=== PATIENT | male | born 1955 | race Caucasian/White ===

== ENCOUNTER 2019-03-29 01:44 | Emergency (ER) | payer MEDICARE, OTHER ==
[~2019-03-29] VITALS: Ht 175 cm; Wt 90.0 kg
[2019-03-29 02:21] LABS: BILIRUBIN,URINE NEGATIVE (NEGATIVE); CLARITY,URINE SL CLOUDY; COLOR,URINE YELLOW; GLUCOSE, URINE (UA) NEGATIVE (NEGATIVE); KETONES,URINE NEGATIVE (NEGATIVE); LEUKOCYTE ESTERASE ,URINE NEGATIVE (NEGATIVE); NITRITE,URINE NEGATIVE (NEGATIVE); PROTEIN,URINE NEGATIVE (NEGATIVE)
[2019-03-29 02:26] LABS: BASOPHILS % (AUTO) 0 % (0-10); EOSINOPHILS % (AUTO) 1 % (0-10); HEMATOCRIT 37 % (40-54); HEMOGLOBIN 12.2 G/DL (13.3-17.7); LYMPHOCYTES % (AUTO) 8 % (12-44); MEAN CORPUSCULAR HEMOGLOBIN 31 PG (25-34); MEAN CORPUSCULAR HGB CONC 33 G/DL (32-36); MEAN CORPUSCULAR VOLUME 91 FL (80-99); MEAN PLATELET VOLUME 9.8 FL (7.4-10.4); MONOCYTES % (AUTO) 16 % (0-12); NEUTROPHILS % (AUTO) 74 % (42-75); PLATELET COUNT 165 10^3/uL (130-400); WHITE BLOOD COUNT 7.8 10^3/uL (4.3-11.0)
[2019-03-29 02:27] LABS: EOSINOPHILS # (AUTO) 0.1 10^3/uL (0.0-0.3); LYMPHOCYTES # (AUTO) 0.6 X 10^3 (1.0-4.0); MONOCYTES # (AUTO) 1.3 X 10^3 (0.0-1.0); NEUTROPHILS # (AUTO) 5.8 X 10^3 (1.8-7.8)
[2019-03-29 02:28] LABS: BACTERIA,URINE NEGATIVE /HPF
[2019-03-29 02:40] LABS: ALBUMIN 3.8 GM/DL (3.2-4.5); BILIRUBIN,TOTAL 0.9 MG/DL (0.1-1.0); CALCIUM 8.9 MG/DL (8.5-10.1); CREATININE SERUM 1.67 MG/DL (0.60-1.30); POTASSIUM 4.1 MMOL/L (3.6-5.0); TOTAL PROTEIN 6.3 GM/DL (6.4-8.2)
[2019-03-29] MEDS ORDERED: NS IV 1000 ML 1,000 ML IV ONE (02:43)
[2019-03-29] MEDS ORDERED: ACHD5005 PO (05:24)
--- NOTE | 2019-03-29 05:25 | ED General ---
General Chief Complaint: Back Problems Stated Complaint: BACK, LOWER ABD PAIN Nursing Triage Note: Pt ambulates to RM 9 with c/o left sided flank pain that radiates to LLQ abd x 5 days. Pt reports taking ibuprofen for the pain and is unrelieved "b ut the pain woke him up during the night". Pt states he has a Hx of kidney stones. Nursing Sepsis Screen: No Definite Risk Source of Information: Patient Exam Limitations: No Limitations History of Present Illness Date Seen by Provider: Mar 29, 2019 Time Seen by Provider: 02:09 Initial Comments This 64-year-old gentleman presents to the emergency room with 5 days of intermittent left flank and lower back pain and pain in the left lower quadrant of the abdomen. He has history of ureteral stones and states this pain may be similar to prior stones. He denies any hematuria. Patient is now minimal but was 8/10 at its worst. Pain woke him this morning. He has taken ibuprofen without relief. He thought he was constipated and took stool softeners. This resulted in soft stool but that did not improve his pain. Allergies and Home Medications Allergies Coded Allergies: Penicillins (Verified Allergy, Unknown, 03/29/19) Home Medications Hydrocodone Bit/Acetaminophen 1 Tab Tab, 1-2 EACH PO Q6H PRN for PAIN-MODERATE Prescribed by: JUSTIN PATEL on 03/29/19 0524 Patient Home Medication List Home Medication List Reviewed: Yes Review of Systems Review of Systems Constitutional: no symptoms reported EENTM: no symptoms reported Respiratory: no symptoms reported Cardiovascular: no symptoms reported Gastrointestinal: see HPI Genitourinary: see HPI Musculoskeletal: no symptoms reported Skin: no symptoms reported Psychiatric/Neurological: No Symptoms Reported Hematologic/Lymphatic: No Symptoms Reported Past Snzigcx-[id number]-Tbltzh Hx Past Med/Social Hx: Reviewed and Corrections made Patient Social History Recent Foreign Travel: No Contact w/Someone Who Travel: No Recent Infectious Disease Expo: No Recent Hopitalizations: No Physical Abuse: No Sexual Abuse: No Mistreated: No Fear: No Seasonal Allergies Seasonal Allergies: No Past Medical History Surgeries: Yes (kidney stones removed) Eye Surgery Respiratory: No Cardiac: No Neurological: No Genitourinary: Yes Prostate Problems Gastrointestinal: No Musculoskeletal: No Endocrine: No HEENT: No Cancer: No Psychosocial: No Blood Disorders: No Physical Exam Vital Signs Vital Signs - First Documented 03/29/19 01:54 Temp 36.7 Pulse 73 Resp 18 B/P (MAP) 158/78 (104) Pulse Ox 98 O2 Delivery Room Air Capillary Refill : Less Than 3 Seconds Height, Weight, BMI Height: '" Weight: lbs. oz. kg; 29.00 BMI Method: General Appearance: No Apparent Distress, WD/WN HEENT: PERRL/EOMI, Normal ENT Inspection Neck: Normal Inspection Respiratory: Lungs Clear, Normal Breath Sounds, No Respiratory Distress Cardiovascular: Regular Rate, Rhythm, No Edema, No Murmur Gastrointestinal: Normal Bowel Sounds, Soft, Tenderness (minimal left lower quadrant tenderness) Back: Normal Inspection, No Vertebral Tenderness Extremity: Normal Inspection Neurologic/Psychiatric: Alert, Oriented x3, No Motor/Sensory Deficits, Normal Mood/Affect, filling and packing supervisor II-XII Norm as Tested Skin: Normal Color, Warm/Dry Progress/Results/Core Measures Suspected Sepsis Recent Fever Within 48 Hours: No Infection Criteria Present: None New/Unexplained Altered Menta: No Sepsis Screen: No Definite Risk SIRS Temperature: Pulse: 73 Respiratory Rate: 18 Laboratory Tests 03/29/19 02:06: White Blood Count 7.8 Blood Pressure 158 /78 Mean: 104 Laboratory Tests 03/29/19 02:06: Creatinine 1.67H, Platelet Count 165, Total Bilirubin 0.9 Results/Orders Lab Results Laboratory Tests Test 03/29/19 02:06 Range/Units White Blood Count 7.8 4.3-11.0 10^3/uL Red Blood Count 4.00 L 4.35-5.85 10^6/uL Hemoglobin 12.2 L 13.3-17.7 G/DL Hematocrit 37 L 40-54 % Mean Corpuscular Volume 91 80-99 FL Mean Corpuscular Hemoglobin 31 25-34 PG Mean Corpuscular Hemoglobin Concent 33 32-36 G/DL Red Cell Distribution Width 13.0 10.0-14.5 % Platelet Count 165 130-400 10^3/uL Mean Platelet Volume 9.8 7.4-10.4 FL Neutrophils (%) (Auto) 74 42-75 % Lymphocytes (%) (Auto) 8 L 12-44 % Monocytes (%) (Auto) 16 H 0-12 % Eosinophils (%) (Auto) 1 0-10 % Basophils (%) (Auto) 0 0-10 % Neutrophils # (Auto) 5.8 1.8-7.8 X 10^3 Lymphocytes # (Auto) 0.6 L 1.0-4.0 X 10^3 Monocytes # (Auto) 1.3 H 0.0-1.0 X 10^3 Eosinophils # (Auto) 0.1 0.0-0.3 10^3/uL Basophils # (Auto) 0.0 0.0-0.1 10^3/uL Urine Color YELLOW Urine Clarity SL CLOUDY Urine pH 6.0 5-9 Urine Specific [place] 1.020 1.016-1.022 Urine Protein NEGATIVE NEGATIVE Urine Glucose (UA) NEGATIVE NEGATIVE Urine Ketones NEGATIVE NEGATIVE Urine Nitrite NEGATIVE NEGATIVE Urine Bilirubin NEGATIVE NEGATIVE Urine Urobilinogen 1.0 < = 1.0 MG/DL Urine Leukocyte Esterase NEGATIVE NEGATIVE Urine RBC (Auto) NEGATIVE NEGATIVE Urine RBC NONE /HPF Urine WBC NONE /HPF Urine Squamous Epithelial Cells 2-5 /HPF Urine Crystals NONE /LPF Urine Bacteria NEGATIVE /HPF Urine Casts NONE /LPF Urine Mucus SMALL H /LPF Urine Culture Indicated NO Sodium Level 139 135-145 MMOL/L Potassium Level 4.1 3.6-5.0 MMOL/L Chloride Level 110 H 98-107 MMOL/L Carbon Dioxide Level 19 L 21-32 MMOL/L Anion Gap 10 5-14 MMOL/L Blood Urea Nitrogen 21 H 7-18 MG/DL Creatinine 1.67 H 0.60-1.30 MG/DL Estimat Glomerular Filtration Rate 41 BUN/Creatinine Ratio 13 Glucose Level 116 H 70-105 MG/DL Calcium Level 8.9 8.5-10.1 MG/DL Corrected Calcium 9.1 8.5-10.1 MG/DL Total Bilirubin 0.9 0.1-1.0 MG/DL Aspartate Amino Transf (AST/SGOT) 18 5-34 U/L Alanine Aminotransferase (ALT/SGPT) 20 0-55 U/L Alkaline Phosphatase 82 40-136 U/L Total Protein 6.3 L 6.4-8.2 GM/DL Albumin 3.8 3.2-4.5 GM/DL My Orders Orders - JUSTIN MONTEJO MD Ed Iv/Invasive Line Start (03/29/19 02:09) Cbc With Automated Diff (03/29/19 02:09) Comprehensive Metabolic Panel (03/29/19 02:09) Ua Culture If Indicated (03/29/19 02:09) Ns Iv 1000 Ml (Sodium Chloride 0.9%) (03/29/19 02:43) Ct Abd/Pelvis Wo(Kidney Stone) (03/29/19 03:21) Hydrocodone/Apap 5/325 Tablet (Lortab 5 (03/29/19 05:30) Medications Given in ED Current Medications Medications Dose Ordered Sig/Sayda Route Start Time Stop Time Status Last Admin Dose Admin Acetaminophen/ Hydrocodone Bitart 1 tab ONCE ONCE PO 03/29/19 05:30 03/29/19 05:31 DC 03/29/19 05:27 1 TAB Sodium Chloride 1,000 ml @ 0 mls/hr Q0M ONCE IV 03/29/19 02:43 03/29/19 02:44 DC 03/29/19 03:17 0 MLS/HR Vital Signs/I&O 03/29/19 03/29/19 01:54 05:33 Temp 36.7 36.7 Pulse 73 73 Resp 18 18 B/P (MAP) 158/78 (104) 145/84 (104) Pulse Ox 98 98 O2 Delivery Room Air Capillary Refill : Less Than 3 Seconds Blood Pressure Mean: 104 POS Progress Note : Progress Note Patient's pain had subsided significantly by the time of my evaluation. I discussed options for workup with the patient including CT of the abdomen and pelvis for evaluation of ureteral stone. After discussion of risks and benefits patient wished to proceed with CT scan. CT noted a distal right ureteral stone and a proximal left ureteral stone with multiple stones within the kidneys. There was bilateral hydronephrosis. Patient was strongly urged to follow-up with a urologist promptly tomorrow. A copy of this note will be sent to Dr. Hutchison. I communicated the presence of renal insufficiency necessitated expedited follow-up. Patient expressed understanding. He received a single dose of hydrocodone to manage his pain. A liter of IV fluid was also infused. Diagnostic Imaging Diagonstic Imaging: CT Plain Films/CT/US/NM/MRI: abdomen, pelvis Comments CT abdomen and pelvis viewed by me and [facility] report reviewed. There appears to be a left proximal obstructing ureteral stone and a right distal possibly obstructing ureteral stone and associated bilateral hydronephrosis. Departure Impression Primary Impression: Bilateral ureteral calculi Additional Impressions: Renal insufficiency Bilateral hydronephrosis Disposition: 01 HOME, SELF-CARE Condition: Improved Departure-Patient Inst. Decision time for Depature: 05:15 Referrals: NO,LOCAL PHYSICIAN (PCP) Primary Care Physician ROBERT HUTCHISON MD Patient Instructions: Kidney Stones in Adults, Kidney Failure (DC) Add. Discharge Instructions: Drink plenty of clear liquids. Avoid the use of NSAID medications such as ibuprofen, aspirin, naproxen, Aleve, Advil, etc. Use of these medications may worsen your kidney function. Follow-up with your primary care provider later this week to monitor your kidney function. Follow-up with a urologist such as Dr. Hutchison as soon as possible. Please call Saturday morning for an appointment time. Return to the emergency room if you have worsening symptoms or develop new symptoms such as fever. All discharge instructions reviewed with patient and/or family. Voiced understanding. Scripts Hydrocodone Bit/Acetaminophen (Hydrocodone/Acetaminophen 5/325mg Tablet) 1 Tab Tab 1-2 EACH PO Q6H PRN for PAIN-MODERATE MDD 10, #20 TAB 0 Refills Prov: JUSTIN MONTEJO MD 03/29/19 Copy Copies To 1: ROBERT HUTCHISON MD, JOSHUA T MD Mar 29, 2019 05:25 POS
[2019-03-29] MEDS ORDERED: HYDROcodone/APAP 5 MG/325 MG (LORTAB) TAB PO ONE (05:30)
[2019-03-29 05:33] VITALS: BP 145/84
--- NOTE | 2019-03-29 06:43 | Diagnostic Imaging Report ---
PROCEDURE: CT urinary tract, rule out kidney stone. TECHNIQUE: Multiple contiguous axial images were obtained through the abdomen and pelvis without the use of intravenous contrast. Auto Exposure Controls were utilized during the CT exam to meet ALARA standards for radiation dose reduction. INDICATION: Right-sided abdominal pain. No prior studies are available for comparison. FINDINGS: The lung bases are clear. Liver contains a tiny low density in the dome of the right lobe, too small to characterize. Gallbladder is unremarkable. No biliary ductal dilatation is seen. The pancreas and spleen are unremarkable. There is no adrenal mass. There are multiple nonobstructing calculi within bilateral kidneys. Largest calculus on the right measures approximately 5 mm. There is a stone in the distal right ureter approximately 4 to 5 mm in size just above the UVJ. There is some mild hydroureteronephrosis. Left kidney is enlarged and demonstrates some perirenal inflammatory stranding. Hydroureteronephrosis is present with 4 to 5 mm calculus in the proximal left ureter. No other ureteral calculi are seen. No bladder calculi are detected. Aorta is non-aneurysmal. Small and large bowel loops are normal caliber. There is no ascites. Prostate is enlarged. Bony structures appear nonacute. IMPRESSION: 1. Bilateral nonobstructing nephrolithiasis. In addition, there are bilateral ureteral calculi producing moderate hydroureteronephrosis. 2. Prostatomegaly. Dictated by: Dictated on workstation # [id number]
== END 2019-03-29 05:33 | disposition home or self-care (01) ==
LOC: ER 01:47
DX: N13.2 Hydronephrosis with renal and ureteral calculous obstruction (principal); Z88.0 Allergy status to penicillin
CPT/HCPCS: 36415; 74176; 80053; 81000; 85025

== ENCOUNTER → 2019-03-30 | Outpatient (CLI) | payer MEDICARE, OTHER ==
[~2019-03-30] MED LIST: ACHD5005 PO; LEVO500T2 PO; TERA5CAP3 PO
--- NOTE | 2019-03-30 17:04 | Diagnostic Imaging Report ---
INDICATION: Left flank pain. Kidney stones. FINDINGS: Stone at the upper aspect of the left kidney is unchanged from prior CT examination. Stone within the right renal pelvis also appears unchanged in position. The smaller intrarenal stones are not evident. The patient's prior distal left ureteral stone is unchanged in position and projects over the left L5 transverse process. The bowel gas pattern is nonobstructed. IMPRESSION: 1. The largest intrarenal calculi within the kidneys are unchanged as is the patient's left-sided mid ureteral stone which measures approximately 5 mm and is unchanged in position projecting over the left L5 transverse process. Dictated by: Dictated on workstation # [id number]
== END ==
LOC: RAD 13:39
PROVIDERS: ATTEND Urology
DX: N20.2 Calculus of kidney with calculus of ureter (principal)
CPT/HCPCS: 74018

== ENCOUNTER 2019-03-31 07:37 | Day surgery (SDC) | payer MEDICARE, OTHER ==
[~2019-03-31] VITALS: Ht 175.3 cm; Wt 88.5 kg
[2019-03-31] VITALS (11 sets, daily range): BP systolic 125–162; BP diastolic 78–93
[~2019-03-31 07:37] MED LIST changes: -LEVO500T2 PO; -TERA5CAP3 PO
--- NOTE | 2019-03-31 08:35 | Diagnostic Imaging Report ---
Reason for examination: Kidney stones, ESWL. Supine view of the abdomen was obtained and compared to yesterday. A 5 mm left ureteral stone has progressed inferiorly which now overlies the left S2 sacral foramen. A 4 mm and 6 mm calcification overlie the right renal shadow and a 6 mm calcification overlies the left renal shadow. No bowel obstruction or free air. IMPRESSION: 1. The 5 mm left ureteral stone has progressed inferiorly from the left L5 transverse process to the left S2 sacral foramen. 2. Bilateral renal calcifications consistent with nonobstructing stones. Dictated by: Dictated on workstation # [id number]
--- NOTE | 2019-03-31 08:41 | Progress Note-Pre Operative ---
Pre-Operative Progress Note H&P Reviewed The H&P was reviewed, patient examined and no changes noted. Date Seen by Provider: Mar 31, 2019 Time Seen by Provider: 08:41 Date H&P Reviewed: Mar 31, 2019 Time H&P Reviewed: 08:41 Pre-Operative Diagnosis: BILATERAL URETERAL AND RENAL STONES ORBERT HUTCHISON MD Mar 31, 2019 08:41 POS
[2019-03-31] MEDS ORDERED: TERA5CAP3 PO (08:44)
[2019-03-31] MEDS: LACTATED RINGERS 1,000 ML IV PRN ×2 (08:46→13:06)
[2019-03-31] MEDS ORDERED: CATHETER FLUSH 10 ML SYR IV PRN (10:00)
[2019-03-31] MEDS ORDERED: cefTRIAXone 1,000 MG/SWFI 10 ML IV PUSH IV ONE ×2 (10:00)
[2019-03-31] MEDS ORDERED: fentaNYL INJECTION 100 MCG/2 ML AMP ONE ×2 (11:03→11:24)
[2019-03-31] MEDS ORDERED: fentaNYL INJECTION 100 MCG/2 ML AMP IVP ONE (11:15)
[2019-03-31] MEDS ORDERED: LIDOCAINE PF 2% 5 ML (XYLOCAINE) VIAL ONE (11:24)
[2019-03-31] MEDS ORDERED: MIDAZOLAM 2 MG/2 ML (VERSED) VIAL ONE (11:24)
[2019-03-31] MEDS ORDERED: SEVOFLURANE (ULTANE) 15 ML INHAL SOLN ONE ×5 (11:24→13:49)
[2019-03-31] MEDS ORDERED: ROCURONIUM 10 MG/ML 5 ML SYRINGE IV ONE (11:24)
[2019-03-31] MEDS ORDERED: ONDANSETRON 4 MG/2 ML (SDV) Z0FRAN ONE (11:24)
[2019-03-31] MEDS ORDERED: proPOfol 200 MG/20 ML (DIPRIVAN) VIAL IV ONE ×2 (11:24→13:26)
--- NOTE | 2019-03-31 12:54 | Progress Note-Post Operative ---
Post-Operative Progess Note Surgeon (s)/Apartment Manager (s) Surgeon ROBERT HUTCHISON MD Apartment Manager: NONE Pre-Operative Diagnosis BILATERAL URETERAL AND RENAL STONES Post-Operative Diagnosis SAME Procedure & Operative Findings Date of Procedure 03/31/19 Procedure Performed/Findings BILATERAL URETEROSCOPY AND BILATERAL ESWL Anesthesia Type GENERAL Estimated Blood Loss Estimated blood loss (mL): NONE Specimens/Packing Specimens Removed NONE Packing: NONE ROBERT HUTCHISON MD Mar 31, 2019 12:54 POS
--- NOTE | 2019-03-31 12:56 | Discharge Inst-Urology ---
Discharge Inst-Urology Reconcile Patient Problems Problems Reviewed?: Yes Final Diagnosis BILATERAL URETERAL AND RENAL STONES Patient Instructions/Follow Up Plan/Assessment/Instructions Please make appointment to been seen in office in 2 weeks. KUB prior to it. KUB on way home Post ESWL instructions Increase oral fluids for 48 hours and then as needed. Diet and Activity as tolerated. If questions or concerns contact your physician Or seek help at emergency department. ROBERT HUTCHISON MD Mar 31, 2019 12:56 POS
[2019-03-31] MEDS ORDERED: FUROSEMIDE 40 MG/4 ML INJ (LASIX) ONE (13:26)
[2019-03-31] MEDS ORDERED: KETOROLAC 30 MG/ML VIAL ONE (13:26)
[2019-03-31] MEDS ORDERED: ONDANSETRON 4 MG/2 ML (SDV) Z0FRAN IVP PRN (14:15)
[2019-03-31] MEDS ORDERED: morphine INJ 10 MG/ML 1ML (SYR OR VIAL) IVP ONE (14:15)
[2019-03-31] MEDS ORDERED: LEVO500T2 PO (14:26)
--- NOTE | 2019-03-31 15:57 | Diagnostic Imaging Report ---
INDICATION: Postop lithotripsy. TIME OF EXAM: 3:46 p.m. COMPARISON: Correlation is made with prior radiograph from earlier today. FINDINGS: Bowel gas pattern is unremarkable. Previously noted left pelvic calcification overlying the mid left sacrum is unchanged in position. Calcific densities overlie the renal shadows bilaterally. No other ureteral calculi are seen. IMPRESSION: Stable abdominal radiograph since the study earlier today. Dictated by: Dictated on workstation # [id number]
--- NOTE | 2019-03-31 22:04 | OPERATIVE REPORT ---
DATE OF SERVICE: 03/31/2019 PREOPERATIVE DIAGNOSIS: Bilateral distal ureteral stones. POSTOPERATIVE DIAGNOSIS: Bilateral distal ureteral stones. OPERATION PERFORMED: Bilateral ureteroscopies and bilateral ESWL. SURGEON: Sushil Hutchison MD ANESTHESIA: General. COMPLICATIONS: None. DESCRIPTION OF PROCEDURE: Under satisfactory general anesthesia, the patient in lithotomy position on the cystoscopy table. Genitalia were prepped and draped in the usual sterile fashion. Cystoscope was introduced under vision. The anterior urethra was normal. The prostate was nonobstructing. Bladder neck was open. Bladder was inspected and was essentially normal except for sluggish efflux more so on the left side. Using the foroblique lens, I dilated the right ureteral orifice intramural portion as well as the left one to accommodate a 6.9 Pashto semi-rigid urethroscope first into the right ureter very close to the stone, I could visualize it, it was floating and relatively smooth. No spike; however, I could not safely fragment it with the lithoclast or basket it plus I was also concerned that it being floating, it will migrate back to the kidney, so I discontinued further attempt and then performed a left ureteroscopy and same scenario again. So, I elected to quit and perform bilateral ESWL. We moved the patient to the ESWL table in supine. First, we localized the left distal ureteral stone. Delivered shocks at kV of 10. A total of 3000 shocks fragmented the stone very well. Then, we moved just to the right distal ureteral stone and again at kV of 10 delivered 2000 shocks with good results. The patient received 30 mg of Toradol and 40 mg of Lasix at the end of the procedure. He tolerated the procedure and anesthesia well and was sent to recovery room in stable condition. Job ID: [id number] DocumentID: [id number] Dictated Date: 03/31/2019 13:44:34 Clam Shucking Machine Tender Date: 03/31/2019 22:03:55 Dictated By: SUSHIL HUTCHISON MD
== END 2019-03-31 16:05 | disposition home or self-care (01) ==
LOC: SDC 07:37
PROVIDERS: ATTEND Urology
DX: N20.1 Calculus of ureter (principal); Z11.2 Encounter for screening for other bacterial diseases; R31.9 Hematuria, unspecified; N40.0 Benign prostatic hyperplasia without lower urinary tract symptoms; Z79.899 Other long term (current) drug therapy; Z88.0 Allergy status to penicillin
CPT/HCPCS: 74018; 87081

== ENCOUNTER → 2019-04-14 | Outpatient (CLI) | payer MEDICARE, OTHER ==
[~2019-04-14] MED LIST changes: +LEVO500T2 PO; +NITR-65 PO; +TAMS0.4C98 PO; +TERA5CAP3 PO; +TRAM50TA2 PO
--- NOTE | 2019-04-14 16:34 | Diagnostic Imaging Report ---
INDICATION: Post ESWL. COMPARISON: 03/31/2019. FINDINGS: The left renal calculus is unchanged measuring about 5 mm. The stone at the L5 level of the left ureter present on the CT of 03/31/2019 is no longer identified. A calcification measuring 5 mm projects between the left 3rd and 4th lumbar spinous process tips. No other potential right-sided ureteral stone. IMPRESSION: Reduction in stone burden. Intrarenal left calculus measuring 5 mm. Stone along the course of the right ureter is 5 mm. No other suspicious calcifications. Dictated by: Dictated on workstation # [id number]
== END ==
LOC: RAD 14:07
PROVIDERS: ATTEND Urology
DX: N20.2 Calculus of kidney with calculus of ureter (principal); Z98.890 Other specified postprocedural states
CPT/HCPCS: 74018

== ENCOUNTER 2019-04-15 09:25 | Day surgery (SDC) | payer MEDICARE, OTHER ==
[2019-04-15] VITALS (11 sets, daily range): BP systolic 118–137; BP diastolic 67–89
[~2019-04-15] VITALS: Ht 175.3 cm; Wt 88.5 kg
[~2019-04-15 09:25] MED LIST changes: -NITR-65 PO; -TAMS0.4C98 PO; -TRAM50TA2 PO
--- NOTE | 2019-04-15 10:06 | Progress Note-Pre Operative ---
Pre-Operative Progress Note H&P Reviewed The H&P was reviewed, patient examined and no changes noted. Date Seen by Provider: Apr 15, 2019 Time Seen by Provider: 10:05 Date H&P Reviewed: Apr 15, 2019 Time H&P Reviewed: 10:05 Pre-Operative Diagnosis: RT PROXIMAL AND LT RENAL STONES ROBERT HUTCHISON MD Apr 15, 2019 10:06 POS
--- NOTE | 2019-04-15 10:19 | Diagnostic Imaging Report ---
INDICATION: Evaluation prior to extracorporeal shock wave lithotripsy, nephrolithiasis. TECHNIQUE: Single supine view of the abdomen at 9:58 AM. CORRELATION STUDY: 04/14/2019. FINDINGS: A large amount of overlying bowel gas and stool does obscure detail. No evidence for underlying bowel obstruction. An approximately 7 mm calcification projects over the superior pole of the left kidney. A 7 mm opacification projects just below the right L3 transverse process and may reflect a potential ureteric or more central renal stone. These appear relatively stable in their position. Sclerosis of the right SI joint is unchanged. IMPRESSION: Probable calcification in the superior pole of the left kidney with additional calcification more centrally over the right kidney or perhaps in the proximal right ureter. Dictated by: Dictated on workstation # [id number]
[2019-04-15] MEDS ORDERED: LACTATED RINGERS 1,000 ML IV PRN (10:22)
[2019-04-15] MEDS ORDERED: LEVOFLOXACIN 250 MG/50 ML IVPB 50 ML IV ONE (10:45)
[2019-04-15] MEDS ORDERED: proPOfol 200 MG/20 ML (DIPRIVAN) VIAL IV ONE (10:52)
[2019-04-15] MEDS ORDERED: LIDOCAINE PF 2% 5 ML (XYLOCAINE) VIAL ONE (10:52)
[2019-04-15] MEDS ORDERED: SEVOFLURANE (ULTANE) 15 ML INHAL SOLN ONE ×2 (10:52→11:50)
[2019-04-15] MEDS ORDERED: ONDANSETRON 4 MG/2 ML (SDV) Z0FRAN ONE (10:52)
[2019-04-15] MEDS ORDERED: fentaNYL INJECTION 100 MCG/2 ML AMP ONE (10:52)
[2019-04-15] MEDS ORDERED: DEXAMETHASONE 10 MG/ML (DECADRON) 1 ML VIAL ONE (10:52)
[2019-04-15] MEDS ORDERED: MIDAZOLAM 2 MG/2 ML (VERSED) VIAL ONE (10:52)
--- NOTE | 2019-04-15 11:27 | Progress Note-Post Operative ---
Post-Operative Progess Note Surgeon (s)/Welder Fitter Apprentice (s) Surgeon ROBERT HUTCHISON MD Welder Fitter Apprentice: NONE Pre-Operative Diagnosis RT PROXIMAL AND LT RENAL STONES Post-Operative Diagnosis SAME Procedure & Operative Findings Date of Procedure 04/15/19 Procedure Performed/Findings RT ESWL Anesthesia Type GENERAL Estimated Blood Loss Estimated blood loss (mL): NONE Specimens/Packing Specimens Removed NONE Packing: NONE ROBERT HUTCHISON MD Apr 15, 2019 11:27 POS
--- NOTE | 2019-04-15 11:30 | Discharge Inst-Urology ---
Discharge Inst-Urology Reconcile Patient Problems Problems Reviewed?: Yes Patient Instructions/Follow Up Plan/Assessment/Instructions Please make appointment to been seen in office Friday 04/27, KUB prior to it KUB on way home Post ESWL instructions Increase oral fluids for 48 hours and then as needed. Diet and Activity as tolerated. If questions or concerns contact your physician Or seek help at emergency department. ROBERT HUTCHISON MD Apr 15, 2019 11:30 POS
[2019-04-15] MEDS ORDERED: KETOROLAC 30 MG/ML VIAL ONE (11:47)
[2019-04-15] MEDS ORDERED: FUROSEMIDE 40 MG/4 ML INJ (LASIX) ONE (11:47)
[2019-04-15] MEDS ORDERED: HYDROmorphone 2 MG/ML VIAL (DILAUDID) IV ONE (12:15)
[2019-04-15] MEDS ORDERED: ONDANSETRON 4 MG/2 ML (SDV) Z0FRAN IVP PRN (12:15)
[2019-04-15] MEDS ORDERED: NITR-65 PO (13:45)
[2019-04-15] MEDS ORDERED: TMSL.4C PO (13:45)
[2019-04-15] MEDS ORDERED: TRM50T PO (13:45)
--- NOTE | 2019-04-15 15:23 | Diagnostic Imaging Report ---
INDICATION: Nephrolithiasis, post extracorporal shockwave lithotripsy. TECHNIQUE: Single supine view of the abdomen, 1:55 PM. CORRELATION STUDY: 04/15/2019. FINDINGS: Approximately 6 to 7 mm calcification in the superior pole left kidney. Additional small calcification more laterally and inferiorly. Additional calcification interposed between the L3-L4 transverse process, approximately 6 mm in size is present. This appears relatively stable. Small calcification in the right hemipelvis, likely a phlebolith. IMPRESSION: No appreciable change in size, appearance or distribution of the areas of calcification over the renal silhouettes and expected course of the ureters. Dictated by: Dictated on workstation # [id number]
--- NOTE | 2019-04-15 15:54 | Anesthesia-General Post-Op ---
General Patient Condition Mental Status/LOC: Same as Preop Cardiovascular: Satisfactory Nausea/Vomiting: Absent Respiratory: Satisfactory Pain: Controlled Complications: Absent Post Op Complications Complications None Follow Up Care/Instructions Patient Instructions None needed. Anesthesia/Patient Condition Patient Condition Patient is doing well, no complaints, stable vital signs, no apparent adverse anesthesia problems. No complications reported per nursing. D/C home per [facility] [place] Criteria: Yes MARTITA JOHNSON CRNA Apr 15, 2019 15:54 POS
--- NOTE | 2019-04-15 19:07 | OPERATIVE REPORT ---
DATE OF SERVICE: 04/15/2019 PREOPERATIVE DIAGNOSES: 1. Right proximal ureteral stone. 2. Left renal stone. POSTOPERATIVE DIAGNOSES: 1. Right proximal ureteral stone. 2. Left renal stone. OPERATION PERFORMED: Right ESWL. SURGEON: Sushil Hutchison MD ANESTHESIA: General. COMPLICATIONS: None. DESCRIPTION OF PROCEDURE: Under satisfactory general anesthesia, the patient in supine position on the ESWL table, the right proximal ureteral stone was localized. Shocks were delivered at kV of 6, a total of 2500 shocks completely fragmented the stone. The patient received 40 mg of Lasix and 30 mg of Toradol IV at the end of the procedure. He tolerated the procedure and anesthesia well and was sent to recovery room in stable condition. PLAN: Check with him when he comes back for followup and continue to decide if he wants to go ahead and do ESWL of the left renal stone . Job ID: [id number] DocumentID: [id number] Dictated Date: 04/15/2019 11:51:09 Jewel Lathe Operator Date: 04/15/2019 19:06:23 Dictated By: SUSHIL HUTCHISON MD
--- OUTSIDE RECORDS SUMMARY | 2019-05-10 22:47 | XMS REPORT | Continuity of Care Document ---
Author Organization Unknown Address Unknown Phone Unavailable Allergies Active Description Code Type Severity Reaction Onset Reported/Identified Relationship to Patient Clinical Status Yes Penicillins [id number] Drug Aller gy Unknown N/A 03/29/2019 Yes Penicillins [id number] Drug Aller gy Unknown RASH 03/31/2019 Medications There is no data. 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 03/29/2019 JUSTIN MONTEJO MD, Ot N28.9 DISORDER OF KIDNEY AND URETER, UNSPECIFI 03/29/2019 JUSTIN MONTEJO MD, Ot Z88.0 ALLERGY STATUS TO PENICILLIN 04/02/2019 ROBERT HUTCHISON MD Ot N20.2 CALCULUS OF KIDNEY WITH CALCULUS OF URET 04/03/2019 ROBERT HUTCHISON MD, Ot N20.1 CALCULUS OF URETER 04/03/2019 ROBERT HUTCHISON MD Ot N40.0 BENIGN PROSTATIC HYPERPLASIA WITHOUT LOW 04/03/2019 ROBERT HUTCHISON MD Ot R31.9 HEMATURIA, UNSPECIFIED 04/03/2019 ROBERT HUTCHISON MD, Ot Z11.2 ENCOUNTER FOR SCREENING FOR OTHER BACTER 04/03/2019 ROBERT HUTCHISON MD Ot 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 04/03/2019 ROBERT HUTCHISON MD, Ot Z88.0 ALLERGY STATUS TO PENICILLIN 04/04/2019 JUSTIN MONTEJO MD, Ot N13.2 HYDRONEPHROSIS WITH RENAL AND URETERAL C 04/04/2019 JUSTIN MONTEJO MD, Ot N28.9 DISORDER OF KIDNEY AND URETER, UNSPECIFI 04/04/2019 JUSTIN MONTEJO MD, Ot Z88.0 ALLERGY STATUS TO PENICILLIN 04/17/2019 ROBERT HUTCHISON MD, Ot N20.2 CALCULUS OF KIDNEY WITH CALCULUS OF URET 04/17/2019 ROBERT HUTCHISON MD Ot Z98.8 90 OTHER SPECIFIED POSTPROCEDURAL STATES 04/20/2019 ROBERT HUTCHISON MD Ot N20.2 CALCULUS OF KIDNEY WITH CALCULUS OF URET 04/20/2019 ROBERT HUTCHISON MD Ot N40.0 BENIGN PROSTATIC HYPERPLASIA WITHOUT LOW 04/20/2019 ROBERT HUTCHISON MD Ot Z88.0 ALLERGY STATUS TO PENICILLIN 04/28/2019 ROBERT HUTCHISON MD, Ot N20.2 CALCULUS OF KIDNEY WITH CALCULUS OF URET Procedures There is no data. Results Test Result Range Complete urinalysis with reflex to cultu re - 03/29/19 02:06 Urine color determination YELLOW NRG Urine clarity determination SL CLOUDY N RG Urine pH measurement by test strip 6.0 5-9 Specific gravity of urine by test strip 1.020 1.016-1.022 Urine protein assay by test strip, semi-quantitative NEGATIVE NEGATIVE Urine glucose detection by automated test strip NE GATIVE NEGATIVE Erythrocytes detection in urine sediment by light micr oscopy NEGATIVE NEGATIVE Urine ketones detection by automated test strip NE GATIVE NEGATIVE Urine nitrite detection by test strip NEGATIVE NEGATIVE Urine total bilirubin detection by test strip NEGA TIVE NEGATIVE Urine urobilinogen measurement by automated test strip (mass/volume) 1.0 mg/dL < = 1.0 Urine leukocyte esterase detection by dipstick NEG ATIVE NEGATIVE Automated urine sediment erythrocyte cou nt by microscopy (number/high power field) NONE NRG Automated urine sediment leukocyte count by microscopy (number/high power field) NONE NRG Bacteria detection in urine sediment by light microsco py NEGATIVE NRG Squamous epithelial cells detection in u rine sediment by light microscopy 2-5 NRG Crystals detection in urine sediment by light microsco py NONE NRG Casts detection in urine sediment by light microscopy NONE NRG Mucus detection in urine sediment by light microscopy SMALL NRG Complete urinalysis with reflex to culture NO NRG Complete blood count (CBC) with automate d white blood cell (WBC) differential - 03/29/19 02:06 Blood leukocytes automated count (number/volume) 7.8 10*3/uL 4.3-11.0 Blood erythrocytes automated count (number/volume) 4.00 10*6/uL 4.35-5.85 Venous blood hemoglobin measurement (mass/volume) 12.2 g/dL 13.3-17.7 Blood hematocrit (volume fraction) 37 % 40-54 Automated erythrocyte mean corpuscular volume 91 [ foz_us] 80-99 Automated erythrocyte mean corpuscular h emoglobin (mass per erythrocyte) 31 pg 25-34 Automated erythrocyte mean corpuscular h emoglobin concentration measurement (mass/volume) 33 g/dL 32-36 Automated erythrocyte distribution width ratio 13. 0 % 10.0- 14.5 Automated blood platelet count (count/volume) 165 10*3/uL 130-400 Automated blood platelet mean volume measurement 9.8 [foz_us] 7.4-10.4 Automated blood neutrophils/100 leukocytes 74 % 42-75 Automated blood lymphocytes/100 leukocytes 8 % 12-44 Blood monocytes/100 leukocytes 16 % 0-12 Automated blood eosinophils/100 leukocytes 1 % 0-10 Automated blood basophils/100 leukocytes 0 % 0-10 Blood neutrophils automated count (number/volume) 5.8 10*3 1.8-7.8 Blood lymphocytes automated count (number/volume) 0.6 10*3 1.0-4.0 Blood monocytes automated count (number/volume) 1. 3 10*3 0.0-1.0 Automated eosinophil count 0.1 10*3/uL 0 .0-0.3 Automated blood basophil count (count/volume) 0.0 10*3/uL 0.0-0.1 Comprehensive metabolic panel - 03/29/19 02:06 Serum or plasma sodium measurement (moles/volume) 139 mmol/L 135-145 Serum or plasma potassium measurement (moles/volume) 4.1 mmol/L 3.6-5.0 Serum or plasma chloride measurement (moles/volume) 110 mmol/L 98-107 Carbon dioxide 19 mmol/L 21-32 Serum or plasma anion gap determination (moles/volume) 10 mmol/L 5-14 Serum or plasma urea nitrogen measurement (mass/volume ) 21 mg/dL 7-18 Serum or plasma creatinine measurement (mass/volume) 1.67 mg/dL 0.60-1.30 Serum or plasma urea nitrogen/creatinine mass ratio 13 NRG Serum or plasma creatinine measurement w ith calculation of estimated glomerular filtration rate 41 NRG Serum or plasma glucose measurement (mass/volume) 116 mg/dL 70-105 Serum or plasma calcium measurement (mass/volume) 8.9 mg/dL 8.5-10.1 Serum or plasma total bilirubin measurement (mass/volu me) 0.9 mg/dL 0.1-1.0 Serum or plasma alkaline phosphatase zulma surement (enzymatic activity/volume) 82 U/L 40-136 Serum or plasma aspartate aminotransfera se measurement (enzymatic activity/volume) 18 U/L 5-34 Serum or plasma alanine aminotransferase measurement (enzymatic activity/volume) 20 U/L 0-55 Serum or plasma protein measurement (mass/volume) 6.3 g/dL 6.4-8.2 Serum or plasma albumin measurement (mass/volume) 3.8 g/dL 3.2-4.5 CALCIUM CORRECTED 9.1 mg/dL 8.5-10.1 Methicillin resistant Staphylococcus aur eus (MRSA) screening culture - 03/31/19 08:04 Methicillin resistant Staphylococcus aureus (MRSA) scr eening culture NEG NRG Methicillin resistant Staphylococcus aur eus (MRSA) screening culture - 04/15/19 10:30 Methicillin resistant Staphylococcus aureus (MRSA) scr eening culture NEG NRG Encounters ACCT No. Visit Date/Time Discharge Status Pt. Type Provider Facility Loc./Unit Complaint [id number] 04/15/2019 09:25:00 14:20:00 DIS Outpatient ROBERT HUTCHISON MD [facility] RIGHT PROXIMAL URETERAL STONE [id number] 04/14/2019 14:07:00 23:59:59 CLS Outpatient ROBERT HUTCHISON MD [facility] RAD KUB [id number] 03/31/2019 07:37:00 16:05:00 DIS Outpatient ROBERT HUTCHISON MD [facility] BILATERAL URETERAL/HELADIO L STONES [id number] 03/30/2019 13:39:00 23:59:59 CLS Outpatient ROBERT HUTCHISON MD [facility] RAD BILATERAL STONES [id number] 03/29/2019 01:47:00 05:33:00 DIS Emergency JUSTIN MONTEJO MD [facility] ER BACK, LOWER ABD PAIN
== END 2019-04-15 14:20 | disposition home or self-care (01) ==
LOC: SDC 09:25
PROVIDERS: ATTEND Urology
DX: N20.2 Calculus of kidney with calculus of ureter (principal); N40.0 Benign prostatic hyperplasia without lower urinary tract symptoms; Z88.0 Allergy status to penicillin
CPT/HCPCS: 74018; 87081

== ENCOUNTER → 2020-06-22 | Outpatient (CLI) | payer SELFPAY ==
[~2020-06-22] MED LIST changes: +NITR-65 PO; +TMSL.4C PO; +TRM50T PO
--- NOTE | 2020-06-22 13:17 | Diagnostic Imaging Report ---
EXAMINATION: CT calcium scoring without contrast. TECHNIQUE: Multiple contiguous axial images were obtained through the chest without the use of intravenous contrast for purposes of calcium scoring. All CT scans use one or more of the following dose optimizing techniques: automated exposure control, MA and/or KvP adjustment based on a patient size and exam type, or iterative reconstruction. HISTORY: CHEST PRESSURE COMPARISON: None available. FINDINGS: The calculated coronary artery calcium score is zero. There is no edema or pneumonia. No pleural effusion. No pneumothorax. No suspicious nodules. Heart size is normal. No pericardial effusion. Aorta is normal in caliber. There is no axillary or supraclavicular lymphadenopathy. There is no mediastinal lymphadenopathy. Limited views of the upper abdomen are unremarkable. There are no suspicious osseous lesions. IMPRESSION: 1. Calculated coronary artery calcium score of zero. Dictated by: Dictated on workstation # [id number]
== END ==
LOC: RAD FS 12:05
PROVIDERS: ATTEND Family Medicine
DX: R07.89 Other chest pain (principal)
CPT/HCPCS: 75571